=== PATIENT | female | born 1965 | race African-American/Black ===

== ENCOUNTER 2019-05-11 15:19 | Emergency (ER) | payer OTHER ==
[~2019-05-11] VITALS: Ht 149.9 cm; Wt 59.9 kg
[2019-05-11 15:19] VITALS: BP 132/82
[~2019-05-11 15:19] MED LIST: MECLIZINE 25 MG25 M1 PO; MECLIZINE HCL25 M1 PO; NOHOMEMEDICATIONS; PHENERGAN25 MG RE; VALIUM2 MG PO; ZOFRAN 4 MG ORAL4 M1 DIS
[2019-05-11] MEDS ORDERED: PREDNISONE 10 M10 MG PO (16:11)
[2019-05-11] MEDS ORDERED: NORFLEX100 MG PO (16:11)
== END 2019-05-11 16:17 | disposition home or self-care (01) ==
LOC: ER 15:19
DX: M54.32 Sciatica, left side (principal); F17.210 Nicotine dependence, cigarettes, uncomplicated; Z90.710 Acquired absence of both cervix and uterus; Z79.899 Other long term (current) drug therapy

== ENCOUNTER 2019-12-24 10:03 | Emergency (ER) | payer OTHER ==
[~2019-12-24] VITALS: Ht 149.9 cm; Wt 60.3 kg
[~2019-12-24 10:03] MED LIST changes: +NORFLEX100 MG PO; +PREDNISONE 10 M10 MG PO
[2019-12-24 10:06] VITALS: BP 135/77
[2019-12-24] MEDS ORDERED: LIDODERM1 EACH TOP (11:04)
== END 2019-12-24 11:01 | disposition home or self-care (01) ==
LOC: ER 10:03
DX: M25.512 Pain in left shoulder (principal); F17.210 Nicotine dependence, cigarettes, uncomplicated; Z90.710 Acquired absence of both cervix and uterus; Z86.2 Personal history of diseases of the blood and blood-forming organs and certain disorders involving the immune mechanism